=== PATIENT | female | born 1945 | race Caucasian/White ===

== ENCOUNTER 2021-02-26 08:23 | Day surgery (SDC) | payer MEDICARE ==
[~2021-02-26] VITALS: Ht 157.5 cm; Wt 63.8 kg
[~2021-02-26 08:23] MED LIST: BODY PO; EXCEDRIN BACK PO; IRON; NAPR220 PO; PHENA200 PO; RXPHEN200 PO; SULTRIDS PO; VIT; [UNRECOGNIZED DRUG - OTHER]
--- NOTE | 2021-02-26 09:06 | NUR ---
Ambulatory in Day Surgery Patient confirms NPO status and agrees with scheduled surgery. History, Chart, Medications and Allergies reviewed before start of procedure. Lungs clear T/O to Auscultation. Patient reports completing Chlorhexadine shower X2 prior to admission to hospital.
--- NOTE | 2021-02-26 13:24 | NUR ---
ASSUMED CARE 1220 PT A/O DENIES PAIN OR NAUSEA SEE ASSESMENT
--- NOTE | 2021-02-26 13:36 | NUR ---
PT ARRIVED TO UNIT AT APROX 1330 FROM PACU POD 0 R EFRAÍN. AQUACEL DRESSING TO R HIP C/D/I. PT HAS NO SENSATION BELOW MID THIGH AND NO GROSS MVMT BLE. DENIES PAIN AT THIS TIME.
--- NOTE | 2021-02-26 18:16 | NUR ---
THIS RN AGREES WITH DOCUMENTAION DONE BY BACK SHOE CUTTER.
--- NOTE | 2021-02-26 18:19 | NUR ---
SHIFT SUMMARY PT POST OP TODAY FOR A R EFRAÍN. SPINAL BLOCK DONE DURING SURGERY. PT IS SLOWLY REGAINING SENSATION BACK IN HER LEGS BUT STILL DOES NOT HAVE MOVEMENT. HYPOTENSION FOLLOWING SURGERY WHICH HAS RESOLVED. AQUACEL DRESSING WITH A POLAR PACK IN PLACE. CDI.
--- NOTE | 2021-02-26 19:38 | NUR ---
RECEIVED REPORT AND ASSUMED CARE OF PT. SHE IS SITTING IN THE RECLINER WITH POLAR PACK, [place] AND SCDs IN PLACE. SHE DENIES PAIN OR ANY NEEDS AT THIS TIME.
[2021-02-27 04:10] LABS: BASOPHILS ABSOLUTE AUTO 0.02 K/mm3 (0.00-0.23); BASOPHILS PERCENT AUTO 0 % (0-2); EOSINOPHILS PERCENT AUTO 0 % (0-6); Hematocrit 34.5 % (33.0-51.0); Hemoglobin 10.9 g/dL (11.5-16.0); IMMATURE GRAN ABSOLUTE AUTO 0.12 K/mm3 (0.00-0.10); IMMATURE GRAN PERCENT AUTO 1 % (0-1); LYMPHOCYTES ABSOLUTE AUTO 0.73 K/mm3 (0.84-5.20); LYMPHOCYTES PERCENT AUTO 4 % (21-46); MONOCYTES ABSOLUTE AUTO 0.92 K/mm3 (0.16-1.47); MONOCYTES PERCENT AUTO 5 % (4-13); Mean Corpuscular HGB 29.2 pg (26.0-34.0); Mean Corpuscular HGB Conc 31.6 g/dL (31.5-36.5); Mean Corpuscular Volume 93 fL (80-100); Mean Platelet Volume 10.4 fL (9.1-12.4); NEUTROPHILS ABSOLUTE AUTO 16.71 K/mm3 (1.96-9.15); NEUTROPHILS PERCENT AUTO 90 % (41-73); Platelet Count 226 K/mm3 (150-400); RDW Coefficient Variation 13.5 % (11.7-14.2); Red Blood Cell Count 3.73 M/mm3 (3.80-5.20)
[2021-02-27 04:38] LABS: Anion Gap 3 mmol/L (6-16); Blood Urea Nitrogen 16 mg/dL (8-24); Bun/Creatinine Ratio 22.8 (12.0-20.0); CO2, Blood 26 mmol/L (21-32); Calcium, Blood 8.3 mg/dL (8.5-10.1); Chloride, Blood 108 mmol/L (98-108); Glomerular Filtration Rate >60 (60-); Glucose, Blood 150 mg/dL (70-99); Potassium, Blood 4.4 mmol/L (3.5-5.5); Sodium, Blood 137 mmol/L (136-145)
--- NOTE | 2021-02-27 06:10 | NUR ---
SHIFT SUMMARY: RANDY IS A&OX4. VSS, NO ACUTE EVENTS OVERNIGHT. SHE REPORTS ADEQUATE PAIN CONTROL WITH THE APAP, TORADOL, AND A SINGLE DOSE OF OXYCODONE. SHE IS A ONE PERSON ASSIST WITH THE GAIT BELT AND FWW, [place], PAS AND POLAR PACK IN PLACE. SHE IS TOLERATING PO INTAKE WELL AND VOIDING WITHOUT DIFFICULTY. SHE IS LYING IN BED WITH THE CALL LIGHT IN REACH. WILL REPORT TO DAY SHIFT RN.
[2021-02-27] MEDS ORDERED: ASPI81CH PO (10:03)
[2021-02-27] MEDS ORDERED: Percocet 5-3251 EACH PO (10:06)
--- NOTE | 2021-02-27 10:59 | NUR ---
DC'D HOME, DC INSTRUCTIONS GIVEN, VERBALIZED UNDERSTANDING.
--- NOTE | 2021-02-28 09:33 | NUR ---
02/28/21 0933 Abbie Grover VERIFICATIONS: EDIT CHART.
== END 2021-02-27 10:53 | disposition home or self-care (01) ==
LOC: ORSCMMR 08:23 → ORD 12:30 → ORSCMMR 13:26 → SURS 13:26 → ORD 13:30 → ORSCMMR 13:30 → SURS 02-27 10:53 → ORSCMMR 02-27 10:53
PROVIDERS: Orthopaedic Surgery
PROC: 0SR90JA Replacement of Right Hip Joint with Synthetic Substitute, Uncemented, Open Approach (ICD-10-PCS; principal; 2021-02-26 09:45)
DX: M16.11 Unilateral primary osteoarthritis, right hip (principal)
CPT/HCPCS: 36415; 72170; 80048; 85025; 97110; 97116; 97162; 97530; A9270; C1713; C1776; J0171; J0690; J0735; J1100; J1885; J2250; J2370; J2405; J2795; J3010; J7050; J7120

== ENCOUNTER → 2021-06-05 | Outpatient (CLI) | payer MEDICARE ==
[~2021-06-05] MED LIST changes: +ASPI81CH PO; +Percocet 5-3251 EACH PO
== END | disposition home or self-care (01) ==
LOC: LAB SHORT 13:32 → LAB EV 13:32
DX: N39.0 Urinary tract infection, site not specified (principal)
CPT/HCPCS: 87077; 87086; 87186

== ENCOUNTER → 2021-12-07 | Outpatient (CLI) | payer MEDICARE | END | disposition home or self-care (01) | LOC: LAB SHORT 16:00 → LAB 16:00 | DX: R30.0 Dysuria (principal) | CPT/HCPCS: 87077; 87086; 87186 ==

== ENCOUNTER → 2021-12-24 | Outpatient (CLI) | payer MEDICARE | END | disposition home or self-care (01) | LOC: LAB SHORT 12:23 | DX: D48.5 Neoplasm of uncertain behavior of skin (principal) | CPT/HCPCS: 88305 ==

== ENCOUNTER → 2022-03-11 | Outpatient (CLI) | payer MEDICARE ==
[2022-03-11 15:16] LABS: Stool Occult Bld Immuno 1 Negative (NEGATIVE)
== END | disposition home or self-care (01) ==
LOC: LAB 09:18 → LAB SHORT 09:18
PROVIDERS: Family Medicine
DX: Z12.11 Encounter for screening for malignant neoplasm of colon (principal)
CPT/HCPCS: G0328

== ENCOUNTER → 2023-02-16 | Outpatient (CLI) | payer MEDICARE | END | disposition home or self-care (01) | LOC: LAB SHORT 12:36 → PLD 12:36 | DX: D48.5 Neoplasm of uncertain behavior of skin (principal) | CPT/HCPCS: 88305 ==

== ENCOUNTER 2024-07-29 08:41 | Day surgery (SDC) | payer MEDICARE ==
[~2024-07-29] VITALS: Ht 157.5 cm; Wt 61.3 kg
[2024-07-29] VITALS (15 sets, daily range): BP systolic 109–127; BP diastolic 50–68
[~2024-07-29 08:41] MED LIST changes: +EXCEDRIN PO; +LOSA50 PO; +METO25ER PO
[2024-07-29] MEDS ORDERED: Lactated Ringer's 1,000 ML IV SCH ×3 (08:50→10:50)
[2024-07-29] MEDS ORDERED: Ropivacaine 0.5% HCl/Pf 123.125 MG,EPINEPHrine HCL 0.25 MG,Ketorolac Tromethamine 15 MG... INFIL SCH (08:50)
[2024-07-29] MEDS ORDERED: CeFAZolin Sodium 2,000 MG in NS 100 ML IV SCH ×2 (08:50→18:30)
[2024-07-29] MEDS ORDERED: Acetaminophen 500 MG Tab PO SCH ×3 (08:50→16:00)
[2024-07-29] MEDS ORDERED: Chlorhexidine Mouth Care 15 ML UDC MT SCH (08:50)
[2024-07-29] MEDS ORDERED: OxyCODONE HCL 10 MG TABCR PO SCH (08:50)
[2024-07-29] MEDS ORDERED: Tranexamic Acid 100 ML IV SCH (08:52)
--- NOTE | 2024-07-29 09:35 | NUR ---
PT AMBULATORY TO DAY SURGERY UNIT AND ABLE TO USE RESTROOM INDEPENDENTLY. BELONGINGS INCLUDING CELL PHONE PLACED IN PT BELONGING BAG AND PLACED UNDER BED. PT DENIES ANY FURTHER QUESTIONS OR NEEDS AT THIS TIME. WARM BLANKET PROVIDED.
[2024-07-29] MEDS ORDERED: FentaNYL Citrate 50 MCG/ML 2 ML Injection ONE (10:25)
[2024-07-29] MEDS ORDERED: propofoL 60 ML IV ONE (10:25)
[2024-07-29] MEDS ORDERED: ePHEDrine Sulfate 50 MG/ML 1ML Injection ONE (10:30)
[2024-07-29] MEDS ORDERED: Ondansetron HCl 2 MG / ML 2ML Vial ONE (10:30)
[2024-07-29] MEDS ORDERED: Dexamethasone Sod Phos 10 MG/ML 1ML VIAL ONE (10:30)
[2024-07-29] MEDS ORDERED: DiphenhydrAMINE HCL 25 MG Cap PO PRN ×2 (10:35→10:50)
[2024-07-29] MEDS ORDERED: HYDROmorphone HCl/Pf 1MG SYR IV PRN ×2 (10:35→10:50)
[2024-07-29] MEDS ORDERED: Bisacodyl 10 MG Supp PR PRN ×2 (10:35→10:50)
[2024-07-29] MEDS ORDERED: FLU VACC TS2024-25(6MOS UP)/PF 45 MCG/0.5 ML SYRINGE IM SCH (10:35)
[2024-07-29] MEDS ORDERED: Ondansetron HCl 2 MG / ML 2ML Vial IV PRN ×2 (10:40→10:50)
[2024-07-29] MEDS ORDERED: Promethazine HCl 25 MG Tab PO PRN ×2 (10:40→10:45)
[2024-07-29] MEDS ORDERED: Magnesium Hydroxide Conc 10 ML UDC PO PRN ×2 (10:40→10:45)
[2024-07-29] MEDS ORDERED: Metoclopramide HCl 5MG / ML 2ML Vial IV PRN ×2 (10:40→10:45)
[2024-07-29] MEDS ORDERED: OxyCODONE HCL 5 MG TAB PO PRN ×4 (10:45→10:50)
[2024-07-29] MEDS ORDERED: Glycopyrrolate 0.2 MG/ML 5ML VIAL ONE (10:47)
[2024-07-29] MEDS ORDERED: FLU VACC TS2024-25(6MOS UP)/PF 45 MCG/0.5 ML SYRINGE IM ONE (10:50)
--- NOTE | 2024-07-29 15:17 | NUR ---
POST OP: REPORT RECEIVED FROM GREEN FEED ATTENDANT. PT TO UNIT AT 1310. A/O, VSS. SURGICAL SITE WNL. PT DENIES ANY PAIN AT THIS TIME. CALL LIGHT IN REACH
[2024-07-29] MEDS ORDERED: Aspir 8181 MG PO (17:58)
[2024-07-29] MEDS ORDERED: Ketorolac Tromethamine 15mg Vial IV SCH (18:00)
--- NOTE | 2024-07-29 18:36 | NUR ---
DISCHARGE: PT ABLE TO AMBULATE, VOID, AND PAIN MANAGED. POST VOID RESIDUAL SHOWED 100 ML. PT'S PAIN IS MANAGED. IV DC'D WNL, TIP INTACT AND DC EDUCATION GIVEN BY YEFRI STEVENS RN. PT LEFT UNIT AT ABOUT 1745 VIA WHEELCHAIR WITH DOMINGA NIETO AND PT .
[2024-07-29] MEDS ORDERED: Apixaban 5 MG Tab PO SCH (21:00)
[2024-07-29] MEDS ORDERED: Docusate Sodium 100 MG Cap PO SCH ×2 (21:00)
[2024-07-30] MEDS ORDERED: Apixaban 5 MG Tab PO SCH (09:00)
[2024-07-30] MEDS ORDERED: Metoprolol Succinate 25 MG TABCR PO SCH (09:00)
[2024-07-30] MEDS ORDERED: Losartan Potassium 25 MG Tab PO SCH (09:00)
== END 2024-07-29 18:00 | disposition home or self-care (01) ==
LOC: ORSCMMR 08:41 → ORD 10:15 → ORSCMMR 10:15 → SURS 13:13 → ORSCMMR 18:00
PROVIDERS: Orthopaedic Surgery
PROC: 0SRD0JA Replacement of Left Knee Joint with Synthetic Substitute, Uncemented, Open Approach (ICD-10-PCS; principal; 2024-07-29 10:15)
PROC: 8E0Y0CZ Robotic Assisted Procedure of Lower Extremity, Open Approach (ICD-10-PCS; principal; 2024-07-29 10:15)
DX: M17.12 Unilateral primary osteoarthritis, left knee (principal); Z96.641 Presence of right artificial hip joint; I10 Essential (primary) hypertension; Z79.899 Other long term (current) drug therapy
CPT/HCPCS: 73560-LT; A9270; C1713; C1776; J0171; J0690; J0735; J1100; J1885; J2405; J2704; J2795; J3010; J7120

== ENCOUNTER → 2025-05-03 | Outpatient (CLI) | payer OTHER ==
[~2025-05-03] MED LIST changes: +Aspir 8181 MG PO
== END ==
LOC: LAB 07:32 → LAB SHORT 07:32
DX: B35.1 Tinea unguium (principal); L60.2 Onychogryphosis
CPT/HCPCS: 88305; 88312